=== PATIENT | female | born 1955 | race Caucasian/White ===

== ENCOUNTER → 2016-11-24 | Outpatient (CLI) | payer BC | LOC: MW.CHOBGYN 14:31 | PROVIDERS: ATTEND Nurse Practitioner Women's Health | DX: R39.9 Unspecified symptoms and signs involving the genitourinary system (principal) | CPT/HCPCS: 81001 ==

== ENCOUNTER 2020-03-30 21:19 | Emergency (ER) | payer BC ==
[2020-03-30] MEDS ORDERED: Octyl 2-Cyanoacrylate 1 Tube ONE (21:44)
--- NOTE | 2020-03-30 21:54 | EDM.PDOC ---
ED HPI GENERAL MEDICAL PROBLEM - General Chief Complaint: Laceration Stated Complaint: LACERATION ON FINGER Time Seen by Provider: 03/30/20 21:31 - History of Present Illness INITIAL COMMENTS - FREE TEXT/NARRATIVE: History of present illness: [] Cut her left hand with her right hand when she is trying to cut a cauliflower. She was cutting it out of her garden. She is right-handed. She could not stop the bleeding easily. Review of systems: As per history of present illness and below otherwise all systems reviewed and negative. Past medical history: As per history of present illness and as reviewed below otherwise non contributory. Surgical history: As per history of present illness and as reviewed below otherwise noncontributory. Social history: No reported history of drug or alcohol abuse. Family history: As per history of present illness and as reviewed below otherwise noncontributory. Physical exam: Constitutional - well developed, well-nourished and in no acute distress HEENT - normocephalic, no evidence of trauma - external nose and mouth normal - no mass in neck and no JVD - mucosae moist EYES - full EOM, PERRL, no icterus - no evidence of inflammation, injection, or drainage Respiratory - no respiratory distress, equal bilateral expansion, lungs clear to auscultation and no abnormal lung sounds Cardiovascular - Regular Rhythm with S1 and S2 appreciated and no murmur, gallop or rub. GI - abdomen soft without distension or organomegaly - normal bowel sounds - no guard or rebound Musculoskeletal no gross deformity of long bones or joints - no tenderness, swelling or edema Neurologic - Alert and oriented times four - CN II-XII grossly intact - motor sensory and coordination symmetrically normal Psychiatric - appropriate mood and affect with normal thought content Hematologic - No petechiae or purpura - mucosa appropriate color and sclera not pale - normal nail bed color and refill Integument -1 cm dorsal based flap over the DIP #3 of the left upper extremity. Integrity of the vascularity is in question because the flap is very superficial and dorsally based. No rash or evidence of trauma - normal turgor Diagnostics: [] Therapeutics: [] Impression: [] Plan: [] Definitive disposition and diagnosis as appropriate pending reevaluation and review of above. left middle finger Pain Score (Numeric/FACES): 3 - Related Data Allergies Allergy/AdvReac Type Severity Reaction Status Date / Time amoxicillin [Amoxicillin] Allergy Hives Verified 03/30/20 21:30 ampicillin Allergy Hives Verified 03/30/20 21:30 sulfamethoxazole Allergy swelling/it Verified 03/30/20 21:30 [From Bactrim] lane trimethoprim [From Bactrim] Allergy swelling/it Verified 03/30/20 21:30 lane Home Meds: Home Meds Cranberry Fruit Extract [Cranberry] 1 tab PO ASDIRECTED 06/13/18 [History] Multivitamin [Multivitamins] 1 tab PO DAILY 06/13/18 [History] Ubidecarenone [COQ-10] 30 mg PO DAILY 06/13/18 [History] Past Medical History HEENT History: Reports: Other (See Below) Other HEENT History: glasses for driving Cardiovascular History: Reports: None Respiratory History: Reports: None Gastrointestinal History: Reports: None Genitourinary History: Reports: UTI, Recurrent DESIGN DRAFTSMAN History: Reports: None Musculoskeletal History: Reports: Fracture, Osteoporosis Other Musculoskeletal History: hx fx ankle Neurological History: Reports: Other (See Below) Other Neuro History: seizures as a child Psychiatric History: Reports: None Endocrine/Metabolic History: Reports: Obesity/BMI 30+, Other (See Below) Other Endocrine/Metabolic History: "prediabetic" Insulin Pump Model and Certified Respiratory Therapist: None Hematologic History: Reports: None Immunologic History: Reports: None Oncologic (Cancer) History: Reports: None Dermatologic History: Reports: None - Infectious Disease History Infectious Disease History: Reports: Measles - Past Surgical History Head Surgeries/Procedures: Reports: None Female Surgical History: Reports: Tubal Ligation Social & Family History - Family History Family Medical History: Noncontributory - Tobacco Use Smoking Status *Q: Never Smoker - Caffeine Use Caffeine Use: Reports: None - Recreational Drug Use Recreational Drug Use: No ED ROS GENERAL - Review of Systems Review Of Systems: Comprehensive ROS is negative, except as noted in HPI. ED EXAM, SKIN/RASH Exam: See Below Text/Narrative:: My history and physical is in the HPI Course - Vital Signs Last Recorded V/S: Last Vital Signs Temp 97.5 F 03/30/20 21:30 Pulse 78 03/30/20 21:30 Resp 18 03/30/20 21:30 BP 141/97 H 03/30/20 21:30 Pulse Ox 97 03/30/20 21:30 - Orders/Labs/Meds Meds: Medications Discontinued Medications Generic Name Dose Route Start Last Admin Trade Name Leslie PRN Reason Stop Dose Admin Octyl Cyanoacrylate Confirm 03/30/20 21:44 Dermabond Advance Administered 03/30/20 21:45 Dose 1 applic .ROUTE .STK-MED ONE Octyl Cyanoacrylate 1 applic 03/30/20 21:58 Dermabond Mini TOP 03/30/20 21:59 ONETIME ONE Octyl Cyanoacrylate 1 applic 03/30/20 21:59 03/30/20 22:15 Dermabond Advance TOP 03/30/20 22:00 1 applic ONETIME ONE Administration The laceration was cleansed and Dermabond applied. It was hemostatic. Departure - Departure Time of Disposition: 22:18 Disposition: Home, Self-Care 01 Clinical Impression: Laceration of finger of left hand - Discharge Information Instructions: Laceration Care, Adult Referrals: Olga Parra, VICE PRESIDENT [employer] ENGINEER[employer] [Primary Care Provider] - Forms: ED Department Discharge Additional Instructions: Watch closely. If the area turns black then the skin should be removed and the dressings need to be done like a burn. If there are red streaks in the area or it is hot or warm or draining pus then you need to be reevaluated and possibly have antibiotics. The following information is given to patients seen in the emergency department who are being discharged to home. This information is to outline your options for follow-up care. We provide all patients seen in our emergency department with a follow-up referral. The need for follow-up, as well as the timing and circumstances, are variable depending upon the specifics of your emergency department visit. If you don't have a primary care physician on staff, we will provide you with a referral. We always advise you to contact your personal physician following an emergency department visit to inform them of the circumstance of the visit and for follow-up with them and/or the need for any referrals to a consulting specialist. The emergency department will also refer you to a specialist when appropriate. This referral assures that you have the opportunity for follow-up care with a specialist. All of these measure are taken in an effort to provide you with optimal care, which includes your follow-up. Under all circumstances we always encourage you to contact your private physician who remains a resource for coordinating your care. When calling for follow-up care, please make the office aware that this follow-up is from your recent emergency room visit. If for any reason you are refused follow-up, please contact the [facility] Emergency Department at and asked to speak to the emergency department charge nurse. [facility] [address] [place] [id number] [address] Sepsis Event Note (ED) - Evaluation Sepsis Screening Result: No Definite Risk - Focused Exam Vital Signs: Vital Signs Temp Pulse Resp BP Pulse Ox 03/30/20 21:30 97.5 F 78 18 141/97 H 97
[2020-03-30] MEDS ORDERED: Octyl 2-Cyanoacrylate 1 APPLIC TUBE TOP ONE (21:58)
[2020-03-30] MEDS ORDERED: Octyl 2-Cyanoacrylate 1 Tube TOP ONE (21:59)
== END 2020-03-30 22:37 | disposition home or self-care (01) ==
LOC: MW.ED 21:19
DX: S61.213A Laceration without foreign body of left middle finger without damage to nail, initial encounter (principal); E66.9 Obesity, unspecified; Z68.31 Body mass index [BMI] 31.0-31.9, adult; Z88.1 Allergy status to other antibiotic agents; Z88.2 Allergy status to sulfonamides; W26.0XXA Contact with knife, initial encounter
CPT/HCPCS: 12001; 99282; A9270